=== PATIENT | male | born 2000 | race Caucasian/White ===

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

== ENCOUNTER 2019-01-13 12:50 | Emergency (ER) | payer SELFPAY ==
--- NOTE | 2019-01-13 15:30 | UC ---
Nausea/Vomiting/Diarrhea HPI - HPI Summary HPI Summary: Mr. Lewis is on his fourth day of N/V/D. He has had an occasional fever (not now and not on meds). He has vomited twice today and kept fluids down in the [facility]. He says he is not nauseated right now. He has had several episodes of watery, non-bloody diarrhea today. - History of Current Complaint Chief Complaint: UCGeneralIllness Stated Complaint: VOMITING BODY ACHES Time Seen by Provider: 01/13/19 14:56 Hx Obtained From: Patient, Family/Sweet Potato Disintegrator Timing: Constant Severity Initially: Moderate Severity Currently: Moderate Character: Cramping Aggravating Factor(s): Food Alleviating Factor(s): Nothing Vomiting Frequency: Daily Nausea/Vomiting Duration: 3-7 days Diarrhea Presence: Yes Diarrhea Frequency: Every 1-2 hours Diarrhea Duration: 3-7 days Diarrhea Characteristics: Watery - Risk Factors Influenza Risk Factors: Negative - Allergies/Home Medications Allergies/Adverse Reactions: Allergies Allergy/AdvReac Type Severity Reaction Status Date / Time No Known Allergies Allergy Verified 01/13/19 13:30 PMH/Surg Hx/FS Hx/Imm Hx Previously Healthy: Yes Other History Of: Negative For: Anticoagulant Therapy - Surgical History Surgical History: None Surgery Procedure, Year, and Place: n/a - Family History Known Family History: Negative: Diabetes, Blood Disorder Family History: Noncontributory - Social History Alcohol Use: None Substance Use Type: None Substance Use Comment - Amount & Last Used: pt denies drugs, ETOH Smoking Status (MU): Heavy Every Day Tobacco Smoker Amount Used/How Often: half pack per day Have You Smoked in the Last Year: No - Immunization History Vaccination Up to Date: Yes Review of Systems All Other Systems Reviewed And Are Negative: Yes Gastrointestinal: Positive: Vomiting, Diarrhea, Nausea Genitourinary: Positive: Negative Physical Exam - Summary Physical Exam Summary: He is non-toxic in appearance with stable vitals. Triage Information Reviewed: Yes Appearance: Well-Appearing, No Pain Distress Vital Signs: Initial Vital Signs Temp 98 F 01/13/19 13:27 Pulse 83 01/13/19 13:27 Resp 18 01/13/19 13:27 BP 116/74 01/13/19 13:27 Pulse Ox 99 01/13/19 13:27 Vital Signs Reviewed: Yes Eye Exam: Normal ENT Exam: Normal Neck exam: Normal Respiratory Exam: Normal Cardiovascular Exam: Normal Abdominal Exam: Normal Bowel Sounds: Positive: Present Musculoskeletal Exam: Normal Skin Exam: Normal Naus/Vom/Diarrhea Course/Dx - Course Course Of Treatment: Ms. Oconnell is not toxic here. The fourth day is slightly long for a self- limited viral or bacterial AGE. I gave him the option of getting IV fluid and meds here and he opted to go home with meds. He is out of the treatment window for influenza although he does say his legs ache some. I would have liked to send a stool sample but he was unable to produce one in over two hours here. I recommended further evaluation if not improved in a day or so. - Differential Dx/Diagnosis Provider Diagnosis: AGE (acute gastroenteritis) Discharge - Sign-Out/Discharge Documenting (check all that apply): Patient Departure All imaging exams completed and their final reports reviewed: No Studies - Discharge Plan Condition: Stable Disposition: HOME Patient Education Materials: Gastroenteritis (ED) Referrals: Farzana Ragland DO [Primary Care Provider] - - Billing Disposition and Condition Condition: STABLE Disposition: Home
[2019-01-13 15:44] VITALS: BP 135/71
== END 2019-01-13 15:44 | disposition home or self-care (01) ==
LOC: UCEAST 12:50
DX: K52.9 Noninfective gastroenteritis and colitis, unspecified (principal); F17.200 Nicotine dependence, unspecified, uncomplicated
CPT/HCPCS: 99212; G0463

== ENCOUNTER 2019-12-26 21:12 | Emergency (ER) | payer OTHER ==
[2019-12-26 21:19] VITALS: BP 142/75
[2019-12-26] MEDS ORDERED: Cephalexin CAP* 500 MG PO ONE (21:30)
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
== END 2019-12-26 21:41 | disposition home or self-care (01) ==
LOC: ED 21:12
DX: J34.0 Abscess, furuncle and carbuncle of nose (principal); F90.9 Attention-deficit hyperactivity disorder, unspecified type; F17.200 Nicotine dependence, unspecified, uncomplicated
CPT/HCPCS: 99281; A9270-GY